=== PATIENT | male | born 1980 | race African-American/Black ===

== ENCOUNTER 2016-09-30 11:01 | Emergency (ER) | payer OTHER ==
[~2016-09-30] VITALS: Ht 182.9 cm; Wt 136.1 kg
[~2016-09-30 11:01] MED LIST: BENTYL 10 MG CA10 M1 PO; BLOOD PRESSURE MED; FLEXERIL PO; IBUPROFEN 800800 MG PO; K-DUR 20 MEQ T20 MEQ PO; LISINOPRIL10 MG PO; LISINOPRIL20 MG PO
[2016-09-30] MEDS ORDERED: CORTISONE + COO28 GM TP (11:35)
[2016-09-30 11:43] LABS: URINE BILIRUBIN NEGATIVE (Negative); URINE BLOOD 2+ (Negative); URINE COLOR YELLOW; URINE GLUCOSE-RANDOM* NEGATIVE (Negative); URINE KETONES NEGATIVE (Negative); URINE NITRITE NEGATIVE (Negative); URINE PROTEIN (DIPSTICK) TRACE (Negative); URINE SPECIFIC GRAVITY 1.025 (1.003-1.035); URINE UROBILINOGEN 0.2 E.U./dl (0.2-1.0)
[2016-09-30 11:53] VITALS: BP 152/85
[2016-09-30 11:56] LABS: CASTS None Seen /LPF (None Seen); SQUAMOUS 0-3 Few /LPF (0-3)
[2016-09-30 11:57] LABS: BACTERIA 1-9 Few /HPF (None Seen); CRYSTALS None Seen /LPF (None Seen); URINE RBC 3-10 Few /HPF (0-2); URINE WBC 0-5 Rare /HPF (0-5)
== END 2016-09-30 11:37 | disposition home or self-care (01) ==
LOC: ER 11:01
PROVIDERS: Nurse Practitioner
DX: R21 Rash and other nonspecific skin eruption (principal); I10 Essential (primary) hypertension; F41.9 Anxiety disorder, unspecified; F10.99 Alcohol use, unspecified with unspecified alcohol-induced disorder